=== PATIENT | male | born 1960 | race Caucasian/White ===

== ENCOUNTER 2023-07-22 00:56 | Emergency (ER) | payer SELFPAY ==
[2023-07-22 00:58] VITALS: BP 132/73; PULSE 90; RESP 18; TEMP 36.3; O2SAT 97; BMI 23.0
--- NOTE | 2023-07-22 01:17 | RAD_ITS ---
INDICATION: bruising and swelling EXAMINATION/TECHNIQUE: X-RAY - RIGHT XR Foot Min 3 Views 3 VIEWS COMPARISON: None FINDINGS: SOFT TISSUES: Diffuse foot edema.. No radiopaque foreign body. BONES/JOINTS: Diffuse osteoarthritis. Osseous destruction and dorsal subluxation of the navicular relative the talus... Normal alignment. No aggressive osseous lesion.. Osteopenia RAD/Foot min 3 Views IMPRESSION: Diffuse osteoarthritis with partial osseous destruction and subluxation of the navicular relative to the talus.. MRI could best further assess as clinically indicated. Electronically Signed: Lexx Kwan MD at 2:23 EDT ,
--- NOTE | 2023-07-22 01:19 | ED.VIS.LOWEX ---
HPI History of Present Illness HPI Narrative: 63-year-old male complaining of bruising and swelling to his right foot. Denies any fall injury or trauma. Denies being on any blood thinners. Said it has been going on the last 2 to 3 days. He can walk on it. Denies any significant pain. Chief Complaint: Lower Extremity Injury Informant: patient and spouse/S.O. Occured/Mechanism Mechanism/Context: No injury and No blunt trauma Onset/Context/Timing Onset: Days Context: Gradual Onset Timing: Continuous Current Severity: Mild Maximum Severity: Mild Associated Symptoms Associated Symptoms: Negative for Parasthesia, Weakness or Loss of Funtion Narrative Narrative: 63-year-old male history of prior stroke. Denies being on any medications. Says his right foot is been swollen discovered for the last 2 to 3 days. Denies any fall injury or trauma. Both feet are mildly swollen. Recent Illness/Hospitalization: No [facility] Medical History Stroke/cerebrovascular accident Home Medications ?Medication ?Instructions ?Recorded ?Last Taken ?Type ARTERY CLEANSE PO BID 07/22/23 Unknown History CURALIN See Rx Instructions PO .COMPLEX 07/22/23 Unknown History NATTANIZE PO 07/22/23 Unknown History metformin 500 mg tablet 500 mg PO BID 30 days #60 tabs 07/22/23 Unknown Rx Allergy/AdvReac Type Severity Reaction Status Date / Time No Known Allergies Allergy Verified 07/22/23 01:02 Social History Smoking Status: Never smoker ROS ROS ED ROS Narrative Denies recent illness. He has had a 40+ pound weight loss in the last 2 months. Review of Systems ROS Unobtainable: Denies due to encephalopathy Constitutional Constitutional ED: Denies chills or fever(s) Eyes Eyes: Denies blurry vision ENT ENT ED: Denies ear pain Respiratory/Chest Respiratory/Chest: Denies cough or dyspnea Gastrointestinal Gastrointestinal: Denies abdominal pain Genitourinary Genitourinary ED: Reports urinary frequency; Denies dysuria or hematuria Musculoskeletal Musculoskeletal: Denies arthralgias or back pain Integumentary Denies abscess or Abrasions Neurologic Neurologic: Denies headache(s) Psychiatric Psychiatric: Denies anxiety or depression Endocrine Endocrinology: Denies polydipsia or polyphagia Hematologic/Lymphatic Hematologic/Lymphatic: Denies easy bleeding, easy bruising or lymphadenopathy Allergic/Immunologic Allergic/Immunologic ED: Denies mouth swelling, tongue swelling or urticaria EXAM Physical Exam Narrative Exam Narrative: Well-appearing 63-year-old male. Vital signs stable afebrile. H EENT exam unremarkable. Mytrex membranes. Neck nontender no JVD. No lymphadenopathy. Lungs clear to auscultation bilaterally. Heart regular rhythm rate about 90 no murmur. Chest wall and ribs nontender. Abdomen soft nontender. Nondistended. Moving all 4 extremities. Normal motor strength. He has mild swelling both feet. There is bruising along the right great toe and is at his other toes. There is no deformity. Is nontender. He has palpable equal and symmetrical DP pulses. There is no calf tenderness or cords. He is able to wiggle his toes. He has normal dorsi and plantarflexion. They are equal and warmth. There is no signs of cellulitis. Neurologically he is awake and alert. No focal motor deficits. Const Vital Signs: 07/22/23 00:58 07/22/23 02:58 Temperature 97.3 F L Temperature Source Temporal Pulse Rate 90 84 Respiratory Rate 18 16 Blood Pressure 132/73 H 119/78 Blood Pressure Mean 92 91 Pulse Ox 97 98 Oxygen Delivery Method Room Air Room Air Positive well nourished and well developed; Negative for obese, cachectic, contractures or unkempt General Appearance ED: well developed and NAD; Negative for unkempt, cachectic or contractures Nutritional Appearance: Negative for cachectic or obese HEENT Reports moist mucous membranes normocephalic and atraumatic; Negative for trauma or tenderness Eyes PERRL Neck full ROM and supple Thyroid: Negative for tender Chest Wall inspection of chest normal and palpation of chest normal Resp normal respiratory effort, no retractions and clear to auscultation bilaterally Auscultation: Negative for rales, rhonchi, wheezes or diminished lung sounds Cardio regular rate, regular rhythm, S1 normal heart sound, S2 normal heart sound and no murmurs Rate: Negative for bradycardia or tachycardic Rhythm: Negative for abnormal rhythm GI non-tender, non-distended and no masses Inspection: Negative for abdominal distention Auscultation: normoactive bowel sounds Palpation: soft; Negative for tender or guarding Back/Spine no CVA tenderness General Back: Negative for CVA tenderness or swelling Cervical Spine: Negative for cervical spine tenderness Thoracic Spine / Upper Back: Negative for thoracic spinal tenderness Lumbar Spine / Lower Back: Negative for lumbar spinal tenderness Extremity full ROM; Negative for normal to inspection Extremity Narrative: Right foot bruising around the great toe and the other toes. No deformity. Nontender. Equal and symmetrical DP pulses bilaterally. Both feet are warm to the touch. Both have mild edema. No gross bony deformity. Dorsi plantarflexion intact. Sensation intact. He cannot walk to the bathroom without any difficulty or pain. General Extremety ED: Yes edema; Negative for cyanosis or weight-bearing difficulty General Extremity: edema; Negative for cyanosis or weight-bearing difficulty Neuro oriented x3, CN's II-XII intact bilaterally and moves all extremities Sensorium / Orientation: alert, oriented to person, oriented to place and oriented to time; Negative for orientation impaired, confused, lethargic or stuporous Motor Exam: strength 5/5 throughout Psych mental status grossly normal Appearance: Negative for unkempt Speech: No other Mood & Affect: Negative for anxious Skin Lesions: no lesions Rashes: no rashes Trauma: Negative for abrasion, laceration or puncture MDM MDM MDM Narrative Medical decision making narrative: 63-year-old male bruising to his right foot. This could be from an injury but is gone no history of an injury. Could be from low platelet count. He is on no blood thinners. He has good circulation and a palpable DP pulse bilaterally. X-ray of the foot will be obtained along with screening labs. Also the other concern is his weight loss which she will need to follow-up with. Repeat exam unchanged. Foot exam is unchanged. Same bruising around the great toe and the other toes of the foot. Again no signs of infection. Normal DP pulse. We discussed the patient's test results. His blood sugar 626. He has not been taking metformin for quite some time. He took himself off of it. Last time he saw his doctor was may be fall of last year. He knows he needs to follow-up. He will be given subcu insulin here and have his blood sugar rechecked an hour. To be discharged home and started on new prescription for metformin. He also be given a liter normal saline. Blood sugar be rechecked prior to discharge. Repeat blood sugar at 4:19 AM is 384. Patient be discharged home. Written for prescription to restart his metformin 500 mg twice a day. Outpatient follow-up with primary care physician for diabetic teaching. Return if worse. History & Record Review Discussion w/independent historian: Patient and Family Additional record(s) reviewed:: No prior records Lab Data Attestation: I reviewed the patient's lab results. Lab results narrative: CBC shows white count of 5. H&H 14 and 43. Platelets 216. PT, INR and PTT are unremarkable at 12, 0.9 and 25. Electrolytes show sodium 134. Gap 13. BUN is 30 creatinine of 1. Glucose 626. Liver enzymes are unremarkable. X-ray of his right foot shows degenerative arthritis of his navicular bone. No acute abnormality. Labs: Laboratory Results - last 24 hr 07/22/23 00:59 WBC 5.8 RBC 4.77 Hgb 14.3 Hct 43.5 MCV 91.2 MCH 30.0 MCHC 32.9 RDW Std Deviation 40.5 RDW Coeff of Laureen 12.2 Plt Count 216 MPV 9.7 Immature Gran % (Auto) 1.200 H Neut % (Auto) 51.8 Lymph % (Auto) 32.7 [place] % (Auto) 11.4 H Eos % (Auto) 1.7 Baso % (Auto) 1.2 H Absolute Neuts (auto) 3.0 Absolute Lymphs (auto) 1.89 Nucleated RBC % 0 PT 12.5 INR 0.9 APTT 25.7 Sodium 134 L Potassium 4.1 Chloride 97 L Carbon Dioxide 24.0 Anion Gap 13 BUN 30 H Creatinine 1.02 Estim Creat Clear Calc 74.35 Est GFR (MDRD) Af Amer 94 Est GFR (MDRD) Non-Af 78 BUN/Creatinine Ratio 29.4 H Glucose 626 H* Calcium 9.1 Total Bilirubin 0.60 AST 25 ALT 32 Alkaline Phosphatase 132 H Total Protein 6.3 L Albumin 2.9 L Globulin 3.4 Albumin/Globulin Ratio 0.9 Radiography Diagnostic Testing: Clinical Impression(s) from Imaging Studies Foot X-Ray 07/22/23 01:17 IMPRESSION: Diffuse osteoarthritis with partial osseous destruction and subluxation of the navicular relative to the talus.. MRI could best further assess as clinically indicated. Electronically Signed: Lexx Kwan MD at 2:23 EDT , Right foot x-ray, 3 views, interpreted by myself shows Discharge Plan Triage Chief Complaint: Lower Extremity Injury ED Provider: Cali Gonzalez Dx/Rx/DC Orders Clinical Impression: Hyperglycemia due to diabetes mellitus, Medical non-compliance, Bruising, History of stroke Instructions: ED Diabetic Hyperglycemia Prescriptions: New metformin 500 mg tablet 500 mg PO BID 30 Days Qty: 60 0RF No Action CURALIN See Rx Instructions PO .COMPLEX Rx Instructions: orally; TAKES 6 TABLETS A DAY NATTANIZE PO Rx Instructions: 2 TABLETS A DAY ARTERY CLEANSE PO BID Primary Care Provider: Care Physician,No Primary Referrals: Delon Christianson MD [Non-Staff] - As soon as possible Activity Restrictions/Additional Instructions: Call and follow-up with your primary care physician, Dr. Delon Christianson or a new physician of your choice soon as possible. You need a new glucometer. You need diabetic teaching. You absolutely need to start back on your metformin to control your blood sugars and check your blood sugars at least 3 times a day. Plenty of fluids such as water. Print Language: [place]ian Disposition Disposition: Home, Self Care
[2023-07-22 01:31] LABS: Absolute Lymphocyte Count 1.89 X10^3/uL (0.83-4.51); Basophil# 0.07 X10^3/uL; Basophil% 1.2 % (0-1); Eosinophils% 1.7 % (0-5); Hematocrit 43.5 % (40-54); Hemoglobin 14.3 g/dL (13.0-16.5); Lymphocyte # 1.89 X10^3/ul (0.83-4.51); Lymphocyte % 32.7 % (19-41); Mean Corp Hgb Conc 32.9 g/dL (32-36); Mean Corpuscular Volume 91.2 fL (80-94); Mean Platelet Vol. 9.7 fl (6.2-12.0); Monocyte# 0.66 X10^3/uL; Monocyte% 11.4 % (0-10); NRBC Flagged by Analyzer 0 % (0-5); Neutrophil # 2.99 X10^3/uL (2.7-7.7); Neutrophil % 51.8 % (47-70); Platelet Count 216 K/mm3 (150-450); RBC Distribution Width CV 12.2 % (11.6-14.6); RBC Distribution Width SD 40.5 fl (35.1-43.9); Red Blood Count 4.77 M/mm3 (4.6-6.2); White Blood Count 5.8 K/mm3 (4.4-11.0)
[2023-07-22 02:02] LABS: International Normalized Ratio 0.9; Prothrombin Time (Protime)PT. 12.5 SECONDS (11.7-14.9)
[2023-07-22 02:03] LABS: Partial Thromboplast Time 25.7 Seconds (24.1-36.2)
[2023-07-22 02:44] LABS: ALB/GLOB Ratio 0.9 RATIO (0.9-2.4); AST(SGOT) 25 U/L (15-37); Alanine Aminotransfer ALT/SGPT 32 U/L (16-61); Albumin, Serum 2.9 g/dL (3.2-5.0); Alkaline Phosphatase 132 U/L (45-117); Anion Gap 13 (5-15); BUN 30 mg/dL (7-18); BUN/Creat Ratio 29.4 RATIO (10-20); Calcium,Total 9.1 mg/dL (8.5-10.1); Chloride 97 mmol/L (98-107); Creatinine, Serum 1.02 mg/dL (0.70-1.30); EST Glomerular Filtration Rate 78 mL/min (>60); Est Glom Filt Rate - Afr Amer 94 mL/min (>60); Estimated Creatinine Clearance 74.35 ml/min; Globulin 3.4 g/dL (2.2-4.2); Glucose 626 mg/dL (74-106); Potassium 4.1 mmol/L (3.5-5.1); Protein, Total 6.3 g/dL (6.4-8.2); Sodium Level 134 mmol/L (136-145)
[2023-07-22 02:58] VITALS: BP 119/78; PULSE 84; RESP 16; O2SAT 98
[2023-07-22] MEDS: Insulin Lispro 100 UNIT/ML INSULN.PEN 10 UNIT SC (03:17)
[2023-07-22] MEDS: 0.9% Normal Saline (1000mL) 1,000 ML 999 ML IV (03:25)
[2023-07-22 04:23] VITALS: BP 117/77; PULSE 78; RESP 16; TEMP 36.6; O2SAT 99
[2023-07-22 04:36] LABS: Bedside Glucose 384 mg/dL (74-106)
== END 2023-07-22 04:25 | disposition home or self-care (01) ==
PROVIDERS: Emergency Provider Emergency Medicine; Visit Provider Emergency Medicine
DX: E11.65 Type 2 diabetes mellitus with hyperglycemia (principal); Z91.199 Patient's noncompliance with other medical treatment and regimen due to unspecified reason; Z86.73 Personal history of transient ischemic attack (TIA), and cerebral infarction without residual deficits
CPT/HCPCS: 73630; 80053; 82962; 85025; 85610; 85730; 96360; 99284; J7030; A4216